=== PATIENT | male | born 1985 | race Caucasian/White ===

== ENCOUNTER → 2017-10-27 13:05 | Outpatient (CLI) | payer OTHER, SELFPAY | PROVIDERS: Family Provider Family Medicine; PCP Family Medicine; Visit Provider Family Medicine | DX: N45.1 Epididymitis (principal) | CPT/HCPCS: 87086 ==

== ENCOUNTER → 2017-11-13 09:12 | Outpatient (CLI) | payer OTHER, SELFPAY ==
--- NOTE | 2017-11-13 | LES_PTH ---
PATIENT: LESA EDWARDS LOC: [facility] U#:[id number] AGE/SX: 39/M ROOM: RE11/13/[address]: Dr. Hermilo Hayes MD : 1985 BED: DIS: SPEC #: [id number] RECD: 11/13/17 09:43 STATUS: HIMANSHU ROSA #: [id number] KATHARINE: 11/13/17 00:[address]: Hermilo Hayes DEPT: SURGICAL PATHOLOGY RECD BY: Byron Hoff ENTERED: 11/13/17 09:44 SP TYPE: Lesion OTHR DR: Dr. Costa Ely MD Tissues: Skin of chest Procedures: Surgery Specimen Level IV HEADER OPERATION: Excision subcutaneous lesion left iliac crest PRE-OP DIAGNOSIS: Lesion subcutaneous tissue TISSUE SUBMITTED: Subcutaneous lesion left iliac crest MICROSCOPIC DIAGNOSIS Subcutaneous lesion left iliac crest, excision: Mature adipose tissue consistent with lipoma. AM:ivon 11/16/17 MICROSCOPIC DESCRIPTION Slides are reviewed. GROSS DESCRIPTION Received in fixative is one container labeled with the patient's name and designated subcutaneous lesion left iliac crest. The specimen consists of an ovoid fragment of yellow fatty tissue measuring 2.5 x 1 x 0.7 cm. The specimen is sectioned to reveal homogenous yellow cut surface. The specimen is bisected and totally submitted in one cassette. AM:ivon 11/13/17 TC: 1 CPT: 00733
== END ==
PROVIDERS: Visit Provider Surgery
DX: L98.9 Disorder of the skin and subcutaneous tissue, unspecified (principal)
CPT/HCPCS: 88305

== ENCOUNTER 2023-08-12 18:03 | Emergency (ER) | payer OTHER, SELFPAY ==
[2023-08-12 18:04] VITALS: BP 145/77; PULSE 57; RESP 18; TEMP 36.1; O2SAT 100; BMI 26.6
--- NOTE | 2023-08-12 18:38 | EDS_ITS ---
HPI History of Present Illness Chief Complaint: Wound Detail of Chief Complaint: Rash near his left armpit. Informant: patient Onset/Context/Timing Onset: Today Context: Gradual Onset Timing: Continuous Current Severity: Mild Maximum Severity: Mild Narrative Narrative: 37-year-old male with a past medical history. Today his found a rash near his left armpit thinks it has been there maybe as long as 24 hours. Mild discomfort. Subjective fever and bodyaches. No history of recent tick bites. No history of Lyme. No other areas of rash. Prior similar symptoms: No Recent Illness/Hospitalization: No PFSH PFSH Medical History No significant medical problems Medical History no medical history no medical history Home Medications ?Medication ?Instructions ?Recorded ?Last Taken ?Type multivitamin,[id number] 1 tab PO QDAY 10/20/17 Unknown History (Complete Multivitamin tablet) Allergy/AdvReac Type Severity Reaction Status Date / Time No Known Allergies Allergy Verified 08/12/23 18:05 Family History Mother Cancer skin Surgical History S/P appendectomy Social History Smoking Status: Never smoker alcohol intake: never substance use type: does not use ROS ROS ED ROS Narrative Subjective fever. Mild rash near his left armpit. Review of Systems ROS Unobtainable: Denies due to encephalopathy Constitutional Constitutional ED: Reports fever(s) and subjective; Denies chills Eyes Eyes: Denies blurry vision ENT ENT ED: Denies ear pain Cardiovascular Cardiovascular: Denies chest pain Respiratory/Chest Respiratory/Chest: Denies cough or dyspnea Gastrointestinal Gastrointestinal: Denies abdominal pain Genitourinary Genitourinary ED: Denies dysuria or hematuria Musculoskeletal Musculoskeletal: Denies arthralgias or back pain Integumentary Reports rash; Denies abscess or Abrasions Neurologic Neurologic: Denies headache(s) Psychiatric Psychiatric: Denies anxiety Endocrine Endocrinology: Denies cold intolerance Hematologic/Lymphatic Hematologic/Lymphatic: Reports none Allergic/Immunologic Allergic/Immunologic ED: Denies mouth swelling, tongue swelling, urticaria or other EXAM Physical Exam Narrative Exam Narrative: 37-year-old male no acute distress vital signs stable afebrile. H EENT exam normal. Neck nontender no lymphadenopathy. Lungs clear to auscultation bilaterally. Heart regular rhythm no murmur. Chest wall and ribs nontender. Abdomen soft nontender. Back just lateral posterior to his left armpit there is an area of a red raised area surrounded by red rash. It looks like a local allergic reaction to an insect bite or sting. There is no pus or abscess. There is no fluctuance. This could potentially be Lyme but is not classic Lyme rash. There is no axillary lymphadenopathy. There is no rash anywhere else on his body. Moving all 4 extremities. Const Vital Signs: 08/12/23 18:04 Temperature 96.9 F L Temperature Source Temporal Pulse Rate 57 L Respiratory Rate 18 Blood Pressure 145/77 H Blood Pressure Mean 99 Pulse Ox 100 Oxygen Delivery Method Room Air Positive well nourished and well developed; Negative for obese, cachectic, contractures or unkempt General Appearance ED: well developed and NAD; Negative for unkempt, cachectic, contractures, cyanotic, diaphoretic or pallor Nutritional Appearance: Negative for cachectic or obese HEENT Reports moist mucous membranes; Denies dry mucous membranes Negative for trauma or tenderness Mouth ED: No dry mucous membranes Mouth: No dry mucous membranes Eyes PERRL and EOMs intact bilaterally General Eye ED: Negative for pale conjunctiva, scleral icterus or other Neck no lymphadenopathy, supple and no JVD General: Negative for tenderness Lymph Lymphatic: Negative for other Chest Wall inspection of chest normal Chest: Negative for other Resp normal respiratory effort and clear to auscultation bilaterally Effort and Inspection: Negative for retractions Auscultation: Negative for rales, rhonchi, wheezes or diminished lung sounds Cardio regular rate, regular rhythm, S1 normal heart sound, S2 normal heart sound and no murmurs Palpation: Negative for palpable S3 or palpable S4 Rate: Negative for bradycardia or tachycardic Rhythm: Negative for abnormal rhythm GI normal to inspection, nondistended, normoactive bowel sounds, non-tender, non- distended and no masses Inspection: Negative for abdominal distention Auscultation: normoactive bowel sounds Palpation: soft; Negative for tender, guarding, mass or rebound tenderness pre sent Back/Spine no CVA tenderness General Back: Negative for CVA tenderness Cervical Spine: Negative for cervical spine tenderness Extremity normal to inspection General Extremety ED: Negative for edema or tenderness General Extremity: Negative for edema Neuro oriented x3 and CN's II-XII intact bilaterally Sensorium / Orientation: alert; Negative for orientation impaired, lethargic or stuporous Sensory Exam: No sensory level loss detected Motor Exam: strength 5/5 throughout; Negative for general weakness or strength abnormal Psych mental status grossly normal Appearance: Negative for unkempt Attitude: No agitated Mood & Affect: Negative for depressed, anxious or tearful Skin No no rashes or lesions noted, no wounds and skin turgor normal Skin Narrative: Rash lateral and posterior left axilla. Appears to be local allergic reaction. Rule out possible Lyme. General Skin Exam: elasticity normal; Negative for jaundice or pallor Lesions: No lesion noted Rashes: rashes noted Trauma: Negative for abrasion Wounds: Negative for wounds noted Discharge Plan Triage Chief Complaint: Wound ED Provider: Adam Lama Dx/Rx/DC Orders Clinical Impression: Insect bite, Allergic reaction Instructions: ED Insect Bite Prescriptions: No Action multivitamin,[id number] [Complete Multivitamin] tablet 1 tab PO QDAY Primary Care Provider: Costa Ely Referrals: Costa Ely MD [Primary Care Provider] - As Needed Activity Restrictions/Additional Instructions: Possible Lyme testing check lipids positive alcohol usage 90. Ice to the area. Motrin for pain and inflammation. Benadryl for allergic reaction. Both Benadryl Motrin to help with. I think this is a localized insect bite with a localized allergic reaction. I do not think it is Lyme. Print Language: [place] Disposition Disposition: Home, Self Care Discharge Date/Time: 08/12/23 18:55
[2023-08-14 16:10] LABS: Lyme Scn Total Ab w/Rflx Negative (Negative)
== END 2023-08-12 18:55 | disposition home or self-care (01) ==
LOC: ED 18:54
PROVIDERS: Emergency Provider Emergency Medicine; PCP Family Medicine; Visit Provider Emergency Medicine
DX: S41.152A Open bite of left upper arm, initial encounter (principal); W57.XXXA Bitten or stung by nonvenomous insect and other nonvenomous arthropods, initial encounter
CPT/HCPCS: 36415; 86618; 99282